=== PATIENT | male | born 1965 | race Caucasian/White ===

== ENCOUNTER 2025-04-23 11:29 | Emergency (ER) | payer OTHER, BC ==
[2025-04-23 12:19] VITALS: BP 115/78; PULSE 69
[2025-04-23] MEDS: Ketorolac 30 MG/ML SDV IM ONE (12:26)
== END 2025-04-23 14:23 | disposition home or self-care (01) ==
LOC: MW.ED 11:29
DX: S46.212A Strain of muscle, fascia and tendon of other parts of biceps, left arm, initial encounter (principal); S43.102A Unspecified dislocation of left acromioclavicular joint, initial encounter; E78.00 Pure hypercholesterolemia, unspecified; Z79.899 Other long term (current) drug therapy; X58.XXXA Exposure to other specified factors, initial encounter
CPT/HCPCS: 73030; 73080; 96372; 99283; A9270; J1885; 99284

== ENCOUNTER 2025-05-01 08:27 | Day surgery (SDC) | payer OTHER ==
[~2025-05-01 08:27] MED LIST: Albuterol 0.083% 2.5 MG/3 ML Neb Soln NEB PRN; Naloxone 0.4 MG/ML SDV IVPUSH PRN; Ondansetron 4 MG/2 ML SDV IVPUSH PRN; Propofol 200 MG/20 ML SDV ONE; ceFAZolin 2 GM in Water For Injection, Sterile 20 ML IVPUSH ONE; fentaNYL 50 MCG/ML SDV IVPUSH PRN; propofoL 1,000 MG/100 ML 100 ML ONE
[2025-05-01] MEDS: Lactated Ringers 1,000 ML IV SCH (09:02)
[2025-05-01] MEDS ORDERED: Ketorolac 30 MG/ML SDV ONE (09:45)
[2025-05-01] MEDS ORDERED: Magnesium Sulfate (4.06 MEQ/ML) 5 GM/10 ML SDV ONE (09:45)
[2025-05-01] MEDS ORDERED: Ondansetron 4 MG/2 ML SDV ONE ×2 (09:45→10:23)
[2025-05-01] MEDS ORDERED: Dexamethasone 4 MG/ML 5 ML MDV ONE (09:46)
[2025-05-01] MEDS ORDERED: propofoL 500 MG/50 ML 50 ML ONE (11:07)
[2025-05-01] MEDS ORDERED: fentaNYL 100 MCG/2 ML SDV ONE (12:14)
[2025-05-01 14:00] VITALS: BP 97/70; PULSE 57
== END 2025-05-01 13:44 | disposition home or self-care (01) ==
LOC: MW.SDS 08:27
PROVIDERS: ATTEND Orthopaedic Surgery
DX: S46.212A Strain of muscle, fascia and tendon of other parts of biceps, left arm, initial encounter (principal); E78.5 Hyperlipidemia, unspecified; Z79.899 Other long term (current) drug therapy; X58.XXXA Exposure to other specified factors, initial encounter
CPT/HCPCS: 24342; 76000; C1776; J0665; J0690; J1100; J1885; J2003; J2405; J2704; J2765; J3010; J3475; J7120; J7999; 01710; 64415; J2371; J3490